=== PATIENT | male | born 1990 | race Caucasian/White ===

== ENCOUNTER 2022-10-28 06:55 | Emergency (ER) | payer OTHER ==
[2022-10-28] MEDS ORDERED: PROPARACAINE 0.5% OPHTH DROPS 15 ML EACHEYE STA (07:21)
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
[2022-10-28 07:34] VITALS: BP 115/90
[2022-10-28] MEDS ORDERED: LIDOCAINE JELLY 2% 6 ML JEL.PF.APP TOP STA (07:36)
== END 2022-10-28 08:02 | disposition home or self-care (01) ==
LOC: ED 06:55
DX: H10.213 Acute toxic conjunctivitis, bilateral (principal); T59.892A Toxic effect of other specified gases, fumes and vapors, intentional self-harm, initial encounter; L25.3 Unspecified contact dermatitis due to other chemical products; S20.212A Contusion of left front wall of thorax, initial encounter; W51.XXXA Accidental striking against or bumped into by another person, initial encounter; Y93.89 Activity, other specified
CPT/HCPCS: 99282; 99283; J3490